=== PATIENT | female | born 1965 | race African-American/Black ===

== ENCOUNTER 2020-05-04 07:21 | Day surgery (SDC) | payer OTHER ==
--- NOTE | 2020-04-29 14:48 | EKG ---
Test Reason : Blood Pressure : / mmHG Vent. Rate : 093 BPM Atrial Rate : 093 BPM P-R Int : 146 ms QRS Dur : 088 ms QT Int : 386 ms P-R-T Axes : 067 064 056 degrees QTc Int : 479 ms NORMAL SINUS RHYTHM NORMAL ECG WHEN COMPARED WITH ECG OF 29-JAN-2020 10:53, NONSPECIFIC T WAVE ABNORMALITY NOW EVIDENT IN INFERIOR LEADS Confirmed by Rob Miguel ([id number]) on 04/29/2020 2:48:06 PM Referred By: BRIANNA CHISHOLM Confirmed By:Rob Miguel
[2020-04-29 15:18] LABS: BASO % 0.7 % (0-2.0); EOS % 3.4 % (0-4.5); HEMATOCRIT 45.7 % (32.4-45.2); LYMPH % 28.6 % (8-40); MCH 31.6 pg (25.7-33.7); MCHC 32.8 g/dl (32.0-36.0); MEAN CELL VOLUME 96.3 fl (80-96); MEAN PLT VOLUME 10.1 fl (7.5-11.1); MONO % 9.7 % (3.8-10.2); NEUT % 57.6 % (42.8-82.8); PLATELET COUNT 345 K/MM3 (134-434); RBC 4.75 M/mm3 (3.60-5.2); RDW 13.4 % (11.6-15.6); WHITE BLOOD COUNT 10.3 K/mm3 (4.0-10.0)
[2020-04-29 15:27] LABS: INR 1.12 (0.83-1.09); PROTHROMBIN TIME (PATIENT) 13.2 SEC (9.7-13.0)
[2020-04-29 15:54] LABS: ALBUMIN 4.3 g/dl (3.4-5.0); ALK PHOS 82 U/L (45-117); ANION GAP 9 MMOL/L (8-16); BILIRUBIN,TOTAL 0.5 mg/dL (0.2-1); BLOOD UREA NITROGEN 11.3 mg/dL (7-18); CALCIUM 9.9 mg/dL (8.5-10.1); CHLORIDE 104 mmol/L (98-107); CO2 24 mmol/L (21-32); CREATININE 0.9 mg/dL (0.55-1.3); GLUCOSE,RANDOM 83 mg/dL (74-106); POTASSIUM 4.1 mmol/L (3.5-5.1); SGOT/AST 18 U/L (15-37); SGPT/ALT 33 U/L (13-61); SODIUM 137 mmol/L (136-145); TOT PROT 8.7 g/dl (6.4-8.2)
[2020-04-29 16:24] VITALS: BMI 37.9
[2020-05-04] MEDS ORDERED: ACETAMINOPHEN 325 MG TABLET (FP) PO PRN (08:16)
[2020-05-04] MEDS ORDERED: IBUPROFEN 400 MG TABLET (FP) PO PRN (08:16)
--- NOTE | 2020-05-04 08:16 | HP ---
History & Physical Update - History History: No Change - Physical Physical: No Change - Assessment Assessment: No Change - Plan Plan: No Change (No change in HP)
[2020-05-04] MEDS ORDERED: PROPOFOL 20 ML ONE (10:29)
[2020-05-04] MEDS ORDERED: KETOROLAC TROMETHAMINE 30 MG/1 ML VIAL ONE (10:29)
[2020-05-04] MEDS ORDERED: MIDAZOLAM HCL 2 MG/2 ML SINGLE DOSE VIAL ONE ×2 (10:30)
[2020-05-04] MEDS ORDERED: PROMETHAZINE HCL 25 MG/1 ML VIAL IVPUSH PRN (11:06)
[2020-05-04] MEDS ORDERED: ONDANSETRON 4 MG/2 ML VIAL IVPUSH PRN (11:06)
[2020-05-04] MEDS ORDERED: oxyCODONE HCL 5 MG TABLET PO PRN (11:06)
--- NOTE | 2020-05-04 11:31 | OP ---
Operative Note - Note: Operative Date: 05/04/20 Pre-Operative Diagnosis: HPV. Cervical Dysplasia Operation: Leep cone biopsy Post-Operative Diagnosis: Same as Pre-op Surgeon: Sima Floyd Anesthesia: General Estimated Blood Loss (mls): 2 Operative Report Dictated: Yes
[2020-05-04 12:23] VITALS: TEMP 97.8
[2020-05-04 12:59] VITALS: BP 147/74; PULSE 72
--- NOTE | 2020-05-06 14:20 | PATH ---
Surgical Pathology Report Patient Name: CLAUDIA ROCHA [facility]. Rec. #: [id number] /Age/Gender: 1965 (Age: 54) / F Account: [id number] Location: [facility] SURGICAL Taken: 05/04/2020 Received: 05/04/2020 Reported: 05/06/2020 Physicians: Sima Floyd M.D. 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 NO EVIDENCE OF HIGH GRADE DYSPLASIA. Note: Margins cannot be precisely assessed due to the detached fragmented squamous epithelium. Electronically Signed Peter Waldrop M.D. Gross Description Received in formalin labeled "cervical biopsy," are 2 bee-pink, unoriented portions of soft tissue measuring 0.8 x 0.8 x 0.2 cm and 0.9 x 0.8 x 0.2 cm. The specimens are inked blue, serially sectioned and entirely submitted in one cassette. /05/04/2020 [facility]/05/04/2020
--- NOTE | 2020-05-20 12:30 | OP ---
DATE OF OPERATION: 05/04/2020 PREOPERATIVE DIAGNOSIS: Human papilloma virus and cervical dysplasia. OPERATION: Loop electrosurgical excision procedure cone. POSTOPERATIVE DIAGNOSIS: Human papilloma virus and cervical dysplasia. SURGEON: Sima Floyd MD ANESTHESIA: General. ESTIMATED BLOOD LOSS: 2 mL. DESCRIPTION OF PROCEDURE: Patient was taken to the operating room, placed in supine position, prepped and draped in the usual sterile fashion. Timeout was performed in accordance with hospital regulations. Speculum was placed in the vagina. Lugol's was then placed on the cervix. Cautery and cutting of the endocervical canal as well as the exocervix was done, and a LEEP cone was then submitted to pathology. The bowl was then placed, and cautery of the cervix was then done. Monsel's was then placed. Hemostasis was achieved. Estimated blood loss 2 mL. SIMA FLOYD M.D. [id number]
== END 2020-05-04 13:12 | disposition home or self-care (01) ==
LOC: JASU-SURG 07:21
PROVIDERS: ATTEND Obstetrics & Gynecology
PROC: 0UBC7ZX Excision of Cervix, Via Natural or Artificial Opening, Diagnostic (ICD-10-PCS; principal; 2020-05-04 09:20)
DX: N87.0 Mild cervical dysplasia (principal); R87.810 Cervical high risk human papillomavirus (HPV) DNA test positive
CPT/HCPCS: 36415; 80053; 84702; 85025; 85610; 86850; 86900; 86901; 88305-TC; 93005; 93010; 94760

== ENCOUNTER 2021-03-08 04:45 | Day surgery (SDC) | payer OTHER ==
[2021-03-04 16:18] VITALS: BMI 38.8
[2021-03-08] MEDS ORDERED: BUPIVACAINE LIPOSOME/PF (EXPAREL) 266 MG/20 ML VIAL ONE (07:03)
[2021-03-08] MEDS ORDERED: BUPIVACAINE HCL 100 ML ONE (07:03)
[2021-03-08] MEDS ORDERED: BUPIVACAINE HCL 50 ML ONE (07:10)
[2021-03-08] MEDS ORDERED: ROCURONIUM BROMIDE 50 MG/5 ML SYRINGE ONE ×2 (07:13→08:07)
[2021-03-08] MEDS ORDERED: fentaNYL CITRATE 250 MCG/5 ML VIAL ONE (07:13)
[2021-03-08] MEDS ORDERED: PROPOFOL 20 ML ONE (07:13)
[2021-03-08] MEDS ORDERED: ceFAZolin SODIUM 1 GM VIAL ONE (07:14)
[2021-03-08] MEDS ORDERED: LIDOCAINE HCL/PF 2% SDV 5ML VIAL ONE (07:15)
[2021-03-08] MEDS ORDERED: MIDAZOLAM HCL 2 MG/2 ML SINGLE DOSE VIAL ONE (07:44)
[2021-03-08] MEDS ORDERED: CEFAZOLIN 2 GM in DEXTROSE 5%-WATER - 100 ML IVPB ONE (08:00)
[2021-03-08] MEDS ORDERED: PHENAZOPYRIDINE HCL 100 MG TABLET (FP) PO ONE (08:00)
[2021-03-08] MEDS ORDERED: ceFAZolin SODIUM 1 GM VIAL IVPB ONE (08:00)
[2021-03-08] MEDS ORDERED: DEXAMETHASONE SOD PHOSPHATE 4 MG/1 ML VIAL ONE (08:36)
[2021-03-08] MEDS ORDERED: ACETAMINOPHEN 1000 MG/100 ML VIAL (NON FORMULARY) IVPB ONE (09:11)
[2021-03-08] MEDS ORDERED: IBUPROFEN 800 MG/8 ML IJ IVPB PRN (09:13)
[2021-03-08] MEDS ORDERED: GLYCOPYRROLATE 0.2 MG/1 ML VIAL ONE (09:20)
[2021-03-08] MEDS ORDERED: NEOSTIGMINE METHYLSULFATE 0.5 MG/ML - 10 ML MDV ONE (09:20)
[2021-03-08] MEDS ORDERED: ONDANSETRON 4 MG/2 ML VIAL IVPUSH PRN (09:57)
[2021-03-08] MEDS ORDERED: LOSARTAN POTASSIUM 100 MG TABLET PO SCH (10:00)
[2021-03-08] MEDS ORDERED: TOPIRAMATE 25 MG TABLET PO SCH (10:00)
[2021-03-08] MEDS ORDERED: GABAPENTIN 300 MG CAPSULE PO SCH (10:00)
[2021-03-08] MEDS ORDERED: LACTATED RINGERS SOLUTION 1,000 ML IV SCH (10:00)
[2021-03-08] MEDS ORDERED: PRAMIPEXOLE DIHYDROCHLORIDE 0.5 MG TABLET PO SCH (10:00)
[2021-03-08] MEDS ORDERED: ENOXAPARIN NA (PORCINE) 40 MG/0.4 ML DISP.SYRIN SQ SCH (10:00)
[2021-03-08] MEDS ORDERED: DOCUSATE SODIUM 100 MG CAPSULE (FP) PO PRN (10:01)
[2021-03-08] MEDS ORDERED: SIMETHICONE 80 MG TAB.CHEW (FP) PO PRN (10:01)
[2021-03-08] MEDS ORDERED: BISACODYL 5 MG TABLET.DR (FP) PO PRN (10:01)
[2021-03-08] MEDS ORDERED: oxyCODONE HCL 5 MG TABLET PO PRN ×2 (10:06→10:08)
[2021-03-08] MEDS: HYDROmorphone HCL CARPU-JECT 2 MG/1 ML DISP.SYRIN IVPUSH PRN ×2 (10:21→10:31)
[2021-03-08] MEDS ORDERED: HYDROmorphone HCl 2 MG/ML VIAL ONE (10:21)
[2021-03-08] MEDS: HYDROCORTISONE 0.5% TOPICAL CREAM 30 GM TUBE TP SCH (12:43)
[2021-03-08] MEDS: CEFAZOLIN 2 GM/D5W 2 GM/50 ML ML IVPB SCH ×2 (15:25→23:30)
[2021-03-08] MEDS: oxyCODONE HCL 5 MG TABLET PO PRN ×2 (15:30→22:40)
[2021-03-08] MEDS ORDERED: HYDROmorphone HCl 2 MG/ML VIAL IVPB PRN (16:32)
[2021-03-08] MEDS: ACETAMINOPHEN 1000 MG/100 ML VIAL (NON FORMULARY) IVPB SCH (19:00)
[2021-03-08 19:15] LABS: HEMOGLOBIN 11.8 GM/dL (10.7-15.3); MCHC 32.6 g/dl (32.0-36.0); MEAN PLT VOLUME 9.6 fl (7.5-11.1); PLATELET COUNT 309 K/MM3 (134-434); RBC 3.79 M/mm3 (3.60-5.2); RDW 13.9 % (11.6-15.6); WHITE BLOOD COUNT 14.6 K/mm3 (4.0-10.0)
[2021-03-08 19:51] LABS: CALCIUM 8.7 mg/dL (8.5-10.1)
[2021-03-08 19:52] LABS: BLOOD UREA NITROGEN 13.2 mg/dL (7-18)
[2021-03-08 19:55] LABS: CREATININE 1.1 mg/dL (0.55-1.3)
[2021-03-08] MEDS: TOPIRAMATE 25 MG TABLET PO SCH (22:00)
[2021-03-08] MEDS: GABAPENTIN 300 MG CAPSULE PO SCH (22:00)
[2021-03-08] MEDS: IBUPROFEN 800 MG/8 ML IJ IVPB SCH (22:00)
[2021-03-08] MEDS ORDERED: ATORVASTATIN CA 10 MG TABLET (FP) PO SCH (22:00)
[2021-03-08] MEDS: PRAMIPEXOLE DIHYDROCHLORIDE 0.5 MG TABLET PO SCH (22:13)
[2021-03-09] MEDS: ACETAMINOPHEN 1000 MG/100 ML VIAL (NON FORMULARY) IVPB SCH ×2 (01:00→06:23)
[2021-03-09] MEDS: oxyCODONE HCL 5 MG TABLET PO PRN ×2 (05:23→10:17)
[2021-03-09] MEDS: IBUPROFEN 800 MG/8 ML IJ IVPB SCH (05:26)
[2021-03-09 08:14] LABS: HEMATOCRIT 31.6 % (32.4-45.2); HEMOGLOBIN 10.7 GM/dL (10.7-15.3); MCHC 33.9 g/dl (32.0-36.0); MEAN CELL VOLUME 94.5 fl (80-96); MEAN PLT VOLUME 9.8 fl (7.5-11.1); PLATELET COUNT 239 K/MM3 (134-434); RBC 3.35 M/mm3 (3.60-5.2); RDW 13.8 % (11.6-15.6)
[2021-03-09 08:39] LABS: CALCIUM 8.7 mg/dL (8.5-10.1)
[2021-03-09 08:40] LABS: BLOOD UREA NITROGEN 14.9 mg/dL (7-18)
[2021-03-09 08:59] VITALS: PULSE 73
[2021-03-09] MEDS ORDERED: LOSARTAN POTASSIUM 100 MG TABLET PO SCH (10:00)
[2021-03-09] MEDS: PRAMIPEXOLE DIHYDROCHLORIDE 0.5 MG TABLET PO SCH (10:10)
[2021-03-09] MEDS: TOPIRAMATE 25 MG TABLET PO SCH (10:11)
[2021-03-09] MEDS: GABAPENTIN 300 MG CAPSULE PO SCH (10:11)
[2021-03-09] MEDS: HYDROCORTISONE 0.5% TOPICAL CREAM 30 GM TUBE TP SCH (10:11)
[2021-03-09 12:20] VITALS: BP 110/78; TEMP 98.1
== END 2021-03-09 13:45 | disposition home or self-care (01) ==
LOC: JASUSAT 04:45 → EDSTATUS 10:15 → J3W 11:57 → JASUSAT 03-09 13:45
PROVIDERS: ATTEND Obstetrics & Gynecology
PROC: 8E0W4CZ Robotic Assisted Procedure of Trunk Region, Percutaneous Endoscopic Approach (ICD-10-PCS; 2021-03-08)
PROC: 0UT9FZZ Resection of Uterus, Via Natural or Artificial Opening With Percutaneous Endoscopic Assistance (ICD-10-PCS; principal; 2021-03-08 07:30)
PROC: 0UT7FZZ Resection of Bilateral Fallopian Tubes, Via Natural or Artificial Opening With Percutaneous Endoscopic Assistance (ICD-10-PCS; 2021-03-08 07:30)
DX: N87.1 Moderate cervical dysplasia (principal); R87.820 Cervical low risk human papillomavirus (HPV) DNA test positive; N83.8 Other noninflammatory disorders of ovary, fallopian tube and broad ligament; B97.7 Papillomavirus as the cause of diseases classified elsewhere
CPT/HCPCS: 58552; S2900; 36415; 80048; 84702; 85027; 86850; 86900; 86901; 88302-TC; 88307-TC; 94010; 94760; J0131